=== PATIENT | female | born 1965 | race Caucasian/White ===

== ENCOUNTER 2020-11-26 11:16 | Observation (INO) ==
[2020-11-26] MEDS ORDERED: ASPIRIN 81 MG CHEWTAB PO ONE (11:50)
[2020-11-26] MEDS ORDERED: NITROSTAT SL PRN (11:51)
[2020-11-26] MEDS ORDERED: ZOFRAN INJ 4 MG VIAL IVP ONE (11:52)
[2020-11-26] MEDS ORDERED: ASPIRIN 81 MG CHEWTAB ONE (11:57)
[2020-11-26] MEDS ORDERED: ZOFRAN INJ 4 MG VIAL ONE (11:57)
[2020-11-26 12:01] LABS: BASOPHILS # (AUTO) 0.1 X10^3/uL (0.0-0.1); BASOPHILS % (AUTO) 0.9 % (0.2-1.0); EOSINOPHILS # (AUTO) 0.4 x10^3/uL (0.0-0.2); EOSINOPHILS % (AUTO) 3.5 % (0.9-2.9); HEMATOCRIT 42.7 % (36.0-47.0); HEMOGLOBIN 14.7 g/dL (12.0-16.0); LYMPHOCYTES # (AUTO) 3.6 X10^3/uL (1.3-2.9); LYMPHOCYTES % (AUTO) 34.7 % (21.0-51.0); MEAN CORPUSCULAR HEMOGLOBIN 30.2 pg (27.0-34.0); MEAN CORPUSCULAR HGB CONC 34.3 g/dL (33.0-35.0); MEAN CORPUSCULAR VOLUME 87.9 fL (80.0-100.0); MEAN PLATELET VOLUME 8.6 fL (7.4-11.0); MONOCYTES # (AUTO) 0.6 x10^3/uL (0.3-0.8); MONOCYTES % (AUTO) 5.9 % (0.0-13.0); NEUTROPHILS # (AUTO) 5.7 x10^3/uL (2.2-4.8); PLATELET COUNT 275 X10^3/uL (150.0-450.0); RED BLOOD COUNT 4.86 X10^6/uL (3.5-5.4); RED CELL DISTRIBUTION WIDTH 12.7 % (11.6-16.5); WHITE BLOOD COUNT 10.3 X10^3/uL (3.6-10.0)
--- NOTE | 2020-11-26 12:12 | RAD ---
CHEST, 1 VIEWHISTORY: Chest painStudy: Single view of the chest.Comparison:NoneFindings:The cardiomediastinal silhouette is normal.No focal consolidations, pleural effusions or pneumothorax. Osseous structures demonstrate no acute abnormality.IMPRESSION:1. No acute cardiopulmonary process.Electronically signed by: LALIT BOWERS (Nov 26, 2020 12:10:24)
[2020-11-26 12:18] LABS: ALANINE AMINOTRANSFERASE 54 Units/L (12-78); ALBUMIN 4.4 g/dL (3.4-5.0); ALKALINE PHOSPHATASE 52 Units/L (46-116); AMYLASE 25 Units/L (25-115); ASPARTATE AMINO TRANSFERASE 30 Units/L (15-37); BLOOD UREA NITROGEN 11 mg/dL (7-18); CALCIUM 9.1 mg/dL (8.5-10.1); CARBON DIOXIDE 27.2 mmol/L (21-32); CHLORIDE 103 mmol/L (98-107); CKMB % 0.9 % (<4); COR NA(FOR HYPERGLY) 142 mmol/L (136-145); CREATINE KINASE 110 Units/L (26-192); CREATINE KINASE MB < 1.0 ng/mL (0-4.0); CREATININE 0.87 mg/dL (0.55-1.02); LIPASE 75 Units/L (73-393); SODIUM 141 mmol/L (136-145); TROPONIN I < 0.02 ng/mL (0-1.5); eGFR NON BLACK RACES > 60 (>60)
--- NOTE | 2020-11-26 12:41 | DR.CP ---
HPI Time Seen Time Seen by Provider: 11/26/20 11:47 PCP Primary Care Physician: SUSANA March Chief Complaint Doctor Comments: CHEST PAIN, NAUSEA AND VOMITING SINCE LAST PM. PAIN IS SUBSTERNAL PRESSURE RADIATING TO THE BACK. PAIN IS 8/10. DENIES SIMILAR PAIN PREVIOUSLY. HISTORY DM AND HTN AND DID NOT TAKE HER MEDICATIONS TODAY DUE TO VOMITING. NO FEVER. FEEL LIKE SOMETHING IS STUCK IN HER THROAT. DENIES DYSURIA. Chief Complaint:: PATIENT REPORTS UNABLE TO KEEP ANYTHING DOWN, "FEELS LIKE IT STOPS IN THROAT", VOMITING, AND MID-STERNUM CHEST PAIN ONSET LAST PM. PAIN IS 8/10. COVID-19 Coronavirus risk:travel/contact w/high risk person: No Has patient experienced Coronavirus symptoms: No Reviewed Nurses Notes Review: Yes Source History Provided: Patient Mode of Arrival Mode of Arrival: Ambulatory Timing Onset of Chief Complaint: 11/25/20 Came on: Suddenly Pain: Present Now Duration Duration: Intermittent Duration: Hours Location Location of Chest Pain: Left and Chest Context Onset: At rest Cardiac Risk Factors: HTN PE Risk Factors: None History of: None Prehospital Care: None Quality Quality: Sharp Severity Severity: Moderate Modifying Factors Worsens: Nothing Impoves: Nothing Associated Signs and Symptoms Associated Signs and Symptoms: Other PMH PMH Past Medical History: Yes Past Medical History: Diabetes and Hypertension Past Surgical History: Yes Surgical History: Hysterectomy Past Surgical History Comment: LEFT KNEE, MELANOMA REMOVED RIGHT SHOULDER Family History History of Family Medical Conditions: Yes Family Medical History: Diabetes Mellitus, Cancer, Coronary Artery Disease and Hypertension Social History Alcohol Use: Heavy Do you use any recreational Drugs:: No Lives With: Spouse Lives Where: Home Travel Risk Coronavirus risk:travel/contact w/high risk person: No Has patient experienced Coronavirus symptoms: No Infectious screening In the last 2 months have you had wt loss of >10#?: NO Have you had fever, night sweats or hemotysis?: No Have you traveled outside the country in the last 6 months?: No Isolation: Standard ROS Review of Systems Constitutional: See HPI, Weakness and Fatigue; negative Fever Eyes: No Symptoms Reported and See HPI ENTM: No Symptoms Reported and See HPI; negative Nose Discharge and Nose Congestion Respiratoy: See HPI and Short of Breath; negative Moist Cough and Wheezing Cardiovascular: No Symptoms Reported, See HPI and Chest Pain; negative Edema and Palpitations Gastrointestinal/Abdominal: See HPI, Abdominal Pain and Nausea; negative Diarrhea and Vomiting Genitourinary: No Symptoms Reported and See HPI; negative Dysuria, Frequency and Hematuria Neurological: See HPI and Weakness; negative Headache, Paresthesia and Dizziness Musculoskeletal: No Symptoms Reported and See HPI; negative Back Pain and Muscle Pain Integumentary: No Symptoms Reported and See HPI; negative Change in Color, Rash and Juandice Hematologic/Lymphatic: No Symptoms Reported and See HPI; negative Easy Bruising and Swollen Glands Endocrine: No Symptoms Reported and See HPI; negative Increased Thirst and Increased Urine Psychiatric: No Symptoms Reported and See HPI All Other Systems: Reviewed and Negative PE Vitals Vitals: Temperature 98.1 F Pulse Rate 78 Respiratory Rate 26 Blood Pressure 195/95 O2 Sat by Pulse Oximetry 99 General Limitations: No Limitations General Appearance: Alert and In No Apparent Distress Head Head Exam: Normal Inspection, Atraumatic and Normocephalic Eyes Eye exam: Normal Appearance, PERRL and EOMI; negative Scleral Icterus and Conjun ctival Injection ENT ENT Exam: Normal Exam, Normal Oropharynx, Normal External Ear Exam and TM's Normal Bilaterally Chest Chest Inspection: Normal Inspection and Symmetric Chest Wall Rise; negative Tenderness Respiratory Respiratory Exam: Normal Lung Sounds Bilat; negative Accessory Muscle Use, Chest Wall Tenderness and Respiratory Distress Respiratory Exam: Bilateral: Clear to Auscultation Cardiovascular Cardiovascular Exam: Regular Rate, Normal Rhythm and Normal Heart Sounds; negative Systolic Murmur and Diastolic Murmur Pulse: Normal Edema: Normal Abdominal Exam Abdominal Exam: Normal Inspection, Normal Bowel Sounds and Soft; negative Tenderness Extremities Extremities Exam: Normal Inspection and Tenderness Back Back Exam: Normal Inspection and Paraspinal Tenderness; negative (R) CVA Tenderness and (L) CVA Tenderness Neurologic Neurological Exam: Alert, Oriented X3 and CN II-XII Intact; negative Motor Sensory Deficit Psychiatric Psychiatric Exam: Normal Affect and Normal Mood Skin Skin Exam: Warm, Dry, Intact and Normal Color MDM Differential Diagnosis Differential Diagnosis: Angina, Chest Wall Pain, Cholelithasis, CHF, Costochondritis, Esophageal Reflux/Spasm, Gastritis, Myocardial Infarction, Pericarditis, Pleuritis, Pancreatitis, Pneumonia and Pneumothorax COURSE Treatment Treatment: SEE ORDERS. ZOFRAN 4MG IV. ASA 81MG TAB, 4TABS PO. NTG 0.4MG S/L Q5MIN TIMES 3 PRN. METOPROLOL 25MG PO AND LISINOPRIL 10MG PO IN ER. Consultation Consultation Comments: DISCUSSED PATIENT WITH DR. GAYTAN. HE WILL ADMIT PATIENT. Education/Counseling Education/Counseling: Patient Educated On: Diagnosis ROR Labs Reviewed Laboratory Results Reviewed?: Yes Result Diagrams: 11/26/20 11:40 11/26/20 11:40 Laboratory: WBC 10.3 X10^3/uL (3.6-10.0) H 11/26/20 11:40 RBC 4.86 X10^6/uL (3.5-5.4) 11/26/20 11:40 Hgb 14.7 g/dL (12.0-16.0) 11/26/20 11:40 Hct 42.7 % (36.0-47.0) 11/26/20 11:40 MCV 87.9 fL (80.0-100.0) 11/26/20 11:40 MCH 30.2 pg (27.0-34.0) 11/26/20 11:40 MCHC 34.3 g/dL (33.0-35.0) 11/26/20 11:40 RDW 12.7 % (11.6-16.5) 11/26/20 11:40 Plt Count 275 X10^3/uL (150.0-450.0) 11/26/20 11:40 MPV 8.6 fL (7.4-11.0) 11/26/20 11:40 Neut % (Auto) 55.0 % (42.0-75.0) 11/26/20 11:40 Lymph % (Auto) 34.7 % (21.0-51.0) 11/26/20 11:40 [place] % (Auto) 5.9 % (0.0-13.0) 11/26/20 11:40 Eos % (Auto) 3.5 % (0.9-2.9) H 11/26/20 11:40 Baso % (Auto) 0.9 % (0.2-1.0) 11/26/20 11:40 Neut # (Auto) 5.7 x10^3/uL (2.2-4.8) H 11/26/20 11:40 Lymph # (Auto) 3.6 X10^3/uL (1.3-2.9) H 11/26/20 11:40 [place] # (Auto) 0.6 x10^3/uL (0.3-0.8) 11/26/20 11:40 Eos # (Auto) 0.4 x10^3/uL (0.0-0.2) H 11/26/20 11:40 Baso # (Auto) 0.1 X10^3/uL (0.0-0.1) 11/26/20 11:40 Absolute Nucleated RBC 0.2 /100WBC 11/26/20 11:40 D-Dimer 0.43 ug/ml (0.0-0.57) 11/26/20 11:40 Sodium 141 mmol/L (136-145) 11/26/20 11:40 Corrected Sodium 142 mmol/L (136-145) 11/26/20 11:40 Potassium 3.9 mmol/L (3.5-5.1) 11/26/20 11:40 Chloride 103 mmol/L (98-107) 11/26/20 11:40 Carbon Dioxide 27.2 mmol/L (21-32) 11/26/20 11:40 BUN 11 mg/dL (7-18) 11/26/20 11:40 Creatinine 0.87 mg/dL (0.55-1.02) 11/26/20 11:40 Est GFR (MDRD) Af Amer > 60 (>60) 11/26/20 11:40 Est GFR (MDRD) Non-Af > 60 (>60) 11/26/20 11:40 Glucose 122 mg/dL (65-99) H 11/26/20 11:40 Calcium 9.1 mg/dL (8.5-10.1) 11/26/20 11:40 Corrected Calcium TNP 11/26/20 11:40 Total Bilirubin 0.40 mg/dL (0.2-1.0) 11/26/20 11:40 AST 30 Units/L (15-37) 11/26/20 11:40 ALT 54 Units/L (12-78) 11/26/20 11:40 Alkaline Phosphatase 52 Units/L (46-116) 11/26/20 11:40 Creatine Kinase 110 Units/L (26-192) 11/26/20 11:40 CK-MB (CK-2) < 1.0 ng/mL (0-4.0) 11/26/20 11:40 CK/CKMB % Calc 0.9 % (<4) 11/26/20 11:40 Troponin I < 0.02 ng/mL (0-1.5) 11/26/20 11:40 B-Natriuretic Peptide 90.5 pg/mL (0-79) H 11/26/20 11:40 Total Protein 8.0 g/dL (6.4-8.2) 11/26/20 11:40 Albumin 4.4 g/dL (3.4-5.0) 11/26/20 11:40 Globulin 3.6 g/dL (2.5-4.5) 11/26/20 11:40 Albumin/Globulin Ratio 1.2 Ratio (1.1-2.1) 11/26/20 11:40 Amylase 25 Units/L (25-115) 11/26/20 11:40 Lipase 75 Units/L (73-393) 11/26/20 11:40 SARS CoV-2 RNA Rapid JONI Negative (NEGATIVE) 11/26/20 13:04 XRAY XRAY Interpreted by: Radiologist (REPORT NOTED AND DISCUSSED WITH PATIENT.) and Self EKG Rate: 70 [place]: Normal Rhythm: NSR Block: None Hypertrophy: None ST: Old, Ant, Infarct and Nonsp Opioid Opioid Risk Tool Age (Sriram box if 16-45): No History of Preadolescent Sexual Abuse: No Total: 0 Total Score Risk Category: Low Risk Copyright: Tr [employer] predicting aberrant behaviors Diagnosis Discharge Problem: Chest pain Qualifiers: Chest pain type: precordial pain Qualified Code(s): R07.2 - Precordial pain Instructions Forms: Precautions for COVID19 Patient Portal Social Distancing
[2020-11-26] MEDS: NS 1000 ML 1,000 ML IV SCH (15:01)
[2020-11-26 15:23] LABS: CKMB % 1.1 % (<4); CREATINE KINASE 94 Units/L (26-192); CREATINE KINASE MB < 1.0 ng/mL (0-4.0); TROPONIN I < 0.02 ng/mL (0-1.5)
[2020-11-26 16:04] VITALS: BMI 32.4
[2020-11-26] MEDS ORDERED: GLUCOPHAGE ONE (16:48)
[2020-11-26] MEDS: GLUCOPHAGE PO SCH (16:50)
[2020-11-26 18:04] LABS: BILIRUBIN,URINE NEGATIVE (NEGATIVE); BLOOD/HEMOGLOBIN,URINE NEGATIVE (NEGATIVE); GLUCOSE, URINE NEGATIVE (NEGATIVE); KETONES,URINE NEGATIVE (NEGATIVE); LEUKOCYTE ESTERASE ,URINE NEGATIVE (NEGATIVE); NITRITES,URINE NEGATIVE (NEGATIVE); PROTEIN,URINE NEGATIVE (NEGATIVE); UROBILINOGEN,URINE NORMAL (NORMAL)
[2020-11-26 18:09] LABS: APPEARANCE,URINE CLEAR (CLEAR); COLOR,URINE YELLOW (YELLOW)
[2020-11-26] MEDS: PEPCID 20 MG IV PREMIX* 20 MG/50 ML BAG IV SCH (20:21)
[2020-11-26] MEDS ORDERED: CRESTOR TAB 10 MG PO SCH (21:00)
[2020-11-26] MEDS ORDERED: TYLENOL 325 MG TAB PO PRN (21:24)
[2020-11-26 21:46] LABS: CKMB % 1.6 % (<4); CREATINE KINASE 80 Units/L (26-192); CREATINE KINASE MB 1.3 ng/mL (0-4.0); TROPONIN I < 0.02 ng/mL (0-1.5)
[2020-11-26] MEDS ORDERED: HumuLIN R SUBCUT PRN (23:17)
[2020-11-27] MEDS: NS 1000 ML 1,000 ML IV SCH (02:39)
[2020-11-27 03:30] LABS: CKMB % 1.4 % (<4); CREATINE KINASE 72 Units/L (26-192); CREATINE KINASE MB < 1.0 ng/mL (0-4.0); TROPONIN I < 0.02 ng/mL (0-1.5)
[2020-11-27 06:40] LABS: ALANINE AMINOTRANSFERASE 42 Units/L (12-78); ALBUMIN 3.6 g/dL (3.4-5.0); ALKALINE PHOSPHATASE 43 Units/L (46-116); ASPARTATE AMINO TRANSFERASE 20 Units/L (15-37); BLOOD UREA NITROGEN 11 mg/dL (7-18); CALCIUM 8.7 mg/dL (8.5-10.1); CARBON DIOXIDE 24.3 mmol/L (21-32); CHLORIDE 103 mmol/L (98-107); CHOL/HDL RATIO 2.3 (0.0-5.0); CHOLESTEROL 110 mg/dL (0-200); COR NA(FOR HYPERGLY) 140 mmol/L (136-145); CREATININE 0.81 mg/dL (0.55-1.02); HDL CHOLESTEROL 47 mg/dL (40-60); MAGNESIUM 1.8 mg/dL (1.7-2.9); SODIUM 139 mmol/L (136-145); TOTAL PROTEIN 6.8 g/dL (6.4-8.2); TRIGLYCERIDES 121 mg/dL (0-150); eGFR NON BLACK RACES > 60 (>60)
[2020-11-27 06:43] LABS: BASOPHILS # (AUTO) 0.1 X10^3/uL (0.0-0.1); EOSINOPHILS # (AUTO) 0.3 x10^3/uL (0.0-0.2); EOSINOPHILS % (AUTO) 3.8 % (0.9-2.9); HEMATOCRIT 40.6 % (36.0-47.0); HEMOGLOBIN 13.5 g/dL (12.0-16.0); LYMPHOCYTES # (AUTO) 4.1 X10^3/uL (1.3-2.9); LYMPHOCYTES % (AUTO) 49.4 % (21.0-51.0); MEAN CORPUSCULAR HEMOGLOBIN 29.5 pg (27.0-34.0); MEAN CORPUSCULAR HGB CONC 33.3 g/dL (33.0-35.0); MEAN CORPUSCULAR VOLUME 88.6 fL (80.0-100.0); MEAN PLATELET VOLUME 9.3 fL (7.4-11.0); MONOCYTES # (AUTO) 0.5 x10^3/uL (0.3-0.8); MONOCYTES % (AUTO) 5.9 % (0.0-13.0); NEUTROPHILS # (AUTO) 3.3 x10^3/uL (2.2-4.8); NEUTROPHILS % (AUTO) 39.9 % (42.0-75.0); PLATELET COUNT 221 X10^3/uL (150.0-450.0); RED BLOOD COUNT 4.59 X10^6/uL (3.5-5.4); WHITE BLOOD COUNT 8.3 X10^3/uL (3.6-10.0)
[2020-11-27] MEDS ORDERED: POTASSIUM CHL 60 MEQ/NS 0.45% 500 ML IV PRN (07:42)
[2020-11-27] MEDS ORDERED: POTASSIUM CHLORIDE LIQ 20 MEQ UDC PO PRN (07:42)
[2020-11-27] MEDS ORDERED: MICRO K EXTEN CAP 10 MEQ PO PRN (07:42)
[2020-11-27] MEDS ORDERED: MAGNESIUM SULFATE 1 GRAM/100 mL PREMIX 1 GM/100 ML BAG IV PRN (07:42)
[2020-11-27] MEDS ORDERED: K-DUR TAB 20 MEQ PO PRN (07:42)
[2020-11-27] MEDS ORDERED: POTASSIUM CHL 40 MEQ/NS 0.45% 500 ML IV PRN (07:42)
[2020-11-27] MEDS ORDERED: KLOR-CON PO PRN (07:42)
[2020-11-27] MEDS ORDERED: K-RIDER 10 MEQ/NS 100 ML 10 MEQ/100 ML BAG IV PRN (07:42)
[2020-11-27] MEDS ORDERED: ESTRACE PO SCH (09:00)
[2020-11-27] MEDS ORDERED: ZESTRIL TAB 10 MG PO SCH (09:00)
[2020-11-27] MEDS ORDERED: PEPCID TAB 20 MG PO SCH (09:00)
[2020-11-27] MEDS ORDERED: TOPROL XL PO SCH (09:00)
[2020-11-27] MEDS ORDERED: TRICOR TAB 160 MG PO SCH (09:00)
--- NOTE | 2020-11-27 11:40 | US ---
HISTORYABD PAIN, VOMITINGSTUDYGALL BLADDERCOMPARISONNoneTECHNIQUEMultiple shields scale and color flow Doppler images of the right upper quadrant were obtained.FINDINGSThe liver is echogenic but normal in size probably due to fatty infiltration although primary hepatocellular disease could give a similar appearance.. No focal intraparenchymal mass or intrahepatic biliary ductal dilatation can be observed. The gallbladder fails to demonstrate evidence for cholelithiasis or layering sludge . The common bile duct is unremarkable measuring 4 mm in width. No pericholecystic fluid or gallbladder wall thickening can be observed .The right kidney appears normal in size without focal parenchymal mass or nephrolithiasis. The right kidney measurers 10.4 cm in length. No hydronephrosis or perirenal fluid can be observed. The pancreatic head and body are unremarkable. The pancreatic tail is largely obscured by overlying bowel gas.IMPRESSIONProbable fatty liver otherwise negative exam..Electronically signed by: KATHERINE LINARES (Nov 27, 2020 11:39:04)
[2020-11-27] MEDS ORDERED: GLUCOPHAGE ONE (11:52)
[2020-11-27] MEDS: GLUCOPHAGE PO SCH (11:52)
[2020-11-27] MEDS: PEPCID 20 MG IV PREMIX* 20 MG/50 ML BAG IV SCH (12:55)
[2020-11-27 12:56] VITALS: BP 189/88
[2020-11-27] MEDS ORDERED: SNACK - Diabetic Appropriate PO SCH (20:00)
--- NOTE | 2020-12-14 10:28 | DR.CARTERS ---
Short Stay Summary - Admission Date Date of Admission: 11/26/20 - Discharge Date Discharge Date: 11/27/20 - Admission Diagnoses (1) Nausea and vomiting Status: Acute (2) Abdominal pain Status: Acute (3) Chest pain Status: Acute - Hospital Course Hospital Course: IS A 55 YEAR OLD WHITE FEMALE WHO IS A PATIENT OF . SHE PRESENTED TO THE ER WITH REPORTS OF CHEST PAIN, NAUSEA, AND VOMITING THAT STARTED ONE DAY PRIOR TO ARRIVAL. SHE DESCRIBED PAIN SUBSTERNAL, PRESSURE, AND RADIATING TO THE BACK. IT WAS REATED A 8/10 ON ARRIVAL. SHE DENIED SIMILAR PAIN IN THE PAST. SHE ALSO DENIED FEVER. SHE DID ADMIT TO FEELING LIKE SOMETHING WAS STUCK IN HER THROAT. HER PMH INCLUDES DIABETES AND HYPERTENSION. ON ARRIVAL TO THE ER, VITALS WERE 98.1-68-18-98%-182/86. LABS WERE OBTAINED. ABNORMAL LAB VALUES INCLUDED THE FOLLOWING: WBC 10.3, GLUCOSE 122, BNP 90.5. CARDIAC ENZYMES WERE WITHIN NORMAL LIMITS. EKG REVEALED: SINUS RHYTHM WITH HR 70. A CHEST XRAY WAS OBTAINED AND REVEALED: 1. No acute cardiopulmonary process. IN THE ER, SHE WAS GIVEN ASPIRIN 324MG AND ZOFRAN 4MG IV X 1 DOSE. SHE WAS ADMITTED TO THE HOSPITAL FOR FURTHER EVALUATION AND TREATMENT OF CHEST PAIN, RULE OUT ACUTE CT AND NAUSEA/VOMITING. SHE WAS STARTED ON NORMAL SALINE AT 50 ML/HR, NITROGLYCERIN 0.4MG SL Q5M PRN, ESTRACE 2MG PO DAILY, PEPCID 20MG IV BID, FENOFIBRATE 160MG PO DAILY, LISINOPRIL 10MG PO DAILY, METFORMIN 1000MG PO BID, METOPROLOL 25MG PO DAILY, ROSUVASTATIN 40MG PO HS, HUMULIN R SLIDING SCALE, AND THE POTASSIUM AND MAGNESIUM PROTOCOLS. WE PLANNED TO OBTAIN SERIAL CARDIAC ENZYMES AND EKGS. OTHERWISE, WE PLANNED TO FOLLOW UP WITH AM LABS AND CONTINUE TO MONITOR. ON THE MORNING FOLLOWING ADMISSION, PATIENT IS ALERT AND ORIENTED, LYING IN BED ON MORNING ROUNDS. SHE DENIES CHEST PAIN THIS MORNING, BUT DOES CONTINUE WITH NAUSEA AND ALSO ADMITS TO EPIGASTRIC/RUQ ABDOMINAL DISCOMFORT. ON EXAMINATION, HEART IS REGULAR IN RATE AND RHYTHM. BILATERAL LUNGS ARE CLEAR TO AUSCULTATION. ABDOMEN IS ROUND, SOFT, AND NOTED WITH RUQ TENDERNESS TO PALPATION. NORMAL BOWEL SOUNDS ARE NOTED IN ALL QUADRANTS. HER VITALS THIS MORNING ARE: 97.0-58-18-93%-167/75. LABS WERE OBTAINED. ABNORMAL LAB VALUES INCLUDE THE FOLLOWING: POTASSIUM 3.4, GLUCOSE 126, ALK PHOS 43. CARDIAC ENZYMES HAVE BEEN NORMAL LIMITS. NO CHANGES NOTED TO EKGS. A GALLBLADDER ULTRASOUND WAS OBTAINED AND REVEALED: Probable fatty liver otherwise negative exam. WE PLANNED FOR DISCHARGE. INSTRUCTIONS FOR MEDICATIONS AND FOLLOW UP WERE DISCUSSED WITH PATIENT. SHE VERBALIZED UNDERSTANDING OF ALL ORDERS. SHE WAS DISCHARGED HOME WITH NEW PRESCRIPTIONS FOR DICYCLOMINE 20MG PO QID PRN, HYOSCYAMINE SULFATE 15ML PO TID PRN, AND PROTONIX 40MG PO BID. HER PEPCID WAS INCREASED TO 20MG PO BID. SHE WAS INSTRUCTED TO FOLLOW UP WITH AND , BLINDSTITCH LAPEL PADDER. PATIENT WAS DISCHARGED HOME WITH FAMILY IN STABLE CONDITION. TIME SPENT ON CLINICAL ASSESSMENT, REVIEWING LABS AND IMAGING, DECISION MAKING, DOCUMENTATION, AND PREPARING DISCHARGE PAPERS WAS GREATER THAN 75 MINUTES. - Discharge Medications Discharge Medications: Home Medication List estradiol 2 mg PO DAILY 11/26/20 [History] fenofibrate 160 mg PO DAILY 11/26/20 [History] lisinopril 10 mg PO DAILY 11/26/20 [History] metformin 1,000 mg PO BID 11/26/20 [History] metoprolol succinate 25 mg PO DAILY 11/26/20 [History] rosuvastatin 40 mg PO HS 11/26/20 [History] dicyclomine 20 mg PO QID PRN #20 tab 11/27/20 [Rx] famotidine 20 mg PO BID #60 tab 11/27/20 [Rx] hyoscyamine sulfate 15 ml PO TID PRN #240 ml 11/27/20 [Rx] pantoprazole 40 mg PO BID #60 tab 11/27/20 [Rx] Prescriptions: dicyclomine Anshul Hawkins hyoscyamine sulfate Anshul Hawkins pantoprazole Anshul Hawkins - Discharge Plan Disposition: HOME, SELF-CARE Condition: Stable Prescriptions: dicyclomine 20 mg PO QID PRN #20 tab PRN Reason: hyoscyamine sulfate 15 ml PO TID PRN #240 ml PRN Reason: pantoprazole 40 mg PO BID #60 tab - Follow up/Referrals Follow up/Referrals: JOEL MEZA [Primary Care Provider] - 12/05/20 2:45 pm ELIEZER ALBRIGHT [REFERRING] - 1 WEEK (Patient requested referral past discharge. Referral faxed [phone].) ZE ROWE [STAFF PHYSICIAN] - 12/07/20 2:10 pm (Appointment cancelled as patient requested.) - Instructions Instructions: Nonspecific Chest Pain, Hand Washing, [id number], Heartburn, [id number], Form - Daily Diabetes Record, Type 2 Diabetes Mellitus, Self Care, Adult, [id number], Nausea and Vomiting, Adult, [id number], Hypertension, [id number], Form - Blood Pressure Record Sheet, Gastroesophageal Reflux Disease, Adult, [id number], Managing Your Hypertension, Brooks Diet Additional Instructions: diet as tolerated. activity as tolerated. OUTPATIENT HIDA SCAN Forms: Excuse From Work or School, Precautions for COVID19, Patient Portal, Social Distancing
== END 2020-11-27 13:45 | disposition home or self-care (01) ==
LOC: ER 11:20 → MED/SURG 11:20
PROVIDERS: ADMIT Internal Medicine; ATTEND Internal Medicine